=== PATIENT | female | born 1995 | race Caucasian/White ===

== ENCOUNTER → 2016-11-22 | Outpatient (CLI) | payer BC ==
[~2016-11-22] MED LIST: FLUO20CA35 PO; NAPR1TAB9 PO
--- NOTE | 2016-11-22 17:27 | DIAGNOSTIC IMAGING REPORT ---
RIGHT WRIST MIN 3 VIEWS ROUTINE CLINICAL HISTORY: WRIST INJURY R Right COMPARISON: None. DISCUSSION: The bones and joint spaces appear intact. There is no evidence of fracture, dislocation or bony disease. There is no evidence for soft tissue swelling. IMPRESSION: Negative study. The above report was generated using voice recognition software. It may contain grammatical, syntax or spelling errors. Electronically signed by: Eddie Siddiqui M.D. 11/22/2016 5:26 PM Dictated Date/Time: 11/22/2016 5:26 PM
== END | disposition home or self-care (01) ==
LOC: C.RAD 17:07
PROVIDERS: ATTEND Family Medicine
DX: S69.90XA Unspecified injury of unspecified wrist, hand and finger(s), initial encounter (principal); X58.XXXA Exposure to other specified factors, initial encounter

== ENCOUNTER → 2016-12-16 | Outpatient (CLI) | payer BC ==
--- NOTE | 2016-12-16 17:43 | DIAGNOSTIC IMAGING REPORT ---
RIGHT WRIST RADIOGRAPHS WITH COMPARISON CLENCHED FIST PA RADIOGRAPH OF THE LEFT WRIST CLINICAL HISTORY: Right wrist pain following fall 9 weeks ago. COMPARISON: Right wrist radiograph November 22, 2016. FINDINGS: Alignment of the right carpal bones is anatomic. No fracture is identified. There is no osseous lesion. Joint spaces are preserved. No sclerosis is identified to suggest a healing fracture. IMPRESSION: Unremarkable right wrist radiographs. No fracture identified. Electronically signed by: Farhat Jones M.D. 12/16/2016 5:42 PM Dictated Date/Time: 12/16/2016 5:39 PM
== END | disposition home or self-care (01) ==
LOC: C.RDSM 15:30
PROVIDERS: ATTEND Family Medicine
DX: S62.101A Fracture of unspecified carpal bone, right wrist, initial encounter for closed fracture (principal); X58.XXXA Exposure to other specified factors, initial encounter